=== PATIENT | male | born 1980 | race Caucasian/White ===

== ENCOUNTER 2018-11-30 15:11 | Emergency (ER) | payer OTHER ==
[2018-11-30 15:15] VITALS: BP 136/99; PULSE 56; RESP 16; TEMP 98.5; O2SAT 100
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
== END 2018-11-30 17:19 | disposition home or self-care (01) ==
LOC: H.ER 15:11
DX: M54.5 Low back pain (principal); S16.1XXA Strain of muscle, fascia and tendon at neck level, initial encounter; S39.012A Strain of muscle, fascia and tendon of lower back, initial encounter; V43.52XA Car driver injured in collision with other type car in traffic accident, initial encounter